=== PATIENT | male | born 1945 | race Caucasian/White ===

== ENCOUNTER 2016-10-14 15:52 | Emergency (ER) | payer MEDICARE, OTHER ==
[~2016-10-14 15:52] MED LIST: FLONASE NAS; LISINOPRIL40 MG PO; LOP50 PO; NASAREL29 MCG NAS; NORV5 PO; PCET PO; PLEND5 PO; PRILOSEC40 MG PO
[2016-10-14 16:52] LABS: BASOPHILS 0.2 %; BASOPHILS ABSOLUTE 0.01 10/3/uL (0.0-0.16); EOSINOPHILS 2.7 %; EOSINOPHILS ABSOLUTE 0.17 10/3/uL (0.0-0.53); HEMATOCRIT 41.5 % (40.0-51.0); HEMOGLOBIN 14.7 g/dL (13.6-17.8); IMMATURE GRANULOCYTES 0.3 %; IMMATURE GRANULOCYTES ABSOLUTE 0.02 10/3/uL (0.0-0.11); LYMPHOCYTES 41.1 %; LYMPHOCYTES ABSOLUTE 2.55 10/3/uL (0.67-4.30); MEAN CORPUS HGB CONC 35.4 g/dL (32.0-36.0); MEAN CORPUSCULAR HEMOGLOB 29.8 pg (26.0-34.0); MEAN PLATELET VOLUME 9.8 fL (9.2-13.0); MONOCYTES 12.2 %; MONOCYTES ABSOLUTE 0.76 10/3/uL (0.21-1.20); NEUTROPHILS 43.5 %; PLATELET COUNT 173 10/3/uL (150-400); RBC DISTRIBUTION WIDTH 13.5 % (12.0-16.0); RED CELL COUNT 4.93 10/6/uL (4.7-6.1); WHITE BLOOD CELLS 6.2 10/3/uL (4.5-10.5)
[2016-10-14 16:53] LABS: MANUAL DIFF NO %; MEAN CORPUSCULAR VOLUME 84.2 fL (80-100)
[2016-10-14 17:09] LABS: INTERNATIONAL NORMAL RATI 1.1 UNITS (-); PARTIAL THROMBO TIME 32.1 SEC (22.5-37.2); PROTIME (NOT ORD) 14.5 SEC (12.0-14.5)
[2016-10-14 17:11] LABS: CALCIUM, SERUM 8.8 MG/DL (8.5-10.4); CHEST PAIN PROFILE TAT 0 Hrs 23 Mins; CHLORIDE, SERUM 107 MMOL/L (96-112); CO2 (CARBON DIOXIDE) 26 MMOL/L (24-34); CREATININE 0.96 MG/DL (0.70-1.30); GFR AFRICAN AMERICAN 93 ML/MIN (>=60); GFR NON AFRICAN AMERICAN 80 ML/MIN (>=60); GLUCOSE, SERUM 85 MG/DL (60-99); POTASSIUM, SERUM 3.3 MMOL/L (3.5-5.3); SODIUM, SERUM 142 MMOL/L (135-148); TROPONIN I <0.02 NG/ML (<0.05)
[2016-10-14 17:12] LABS: BUN (BLOOD UREA NITROGEN) 20 MG/DL (6-23)
== END 2016-10-14 20:47 | disposition home or self-care (01) ==
LOC: ER 15:52
PROVIDERS: Hospitalist
DX: M25.512 Pain in left shoulder (principal); R51 Headache; I10 Essential (primary) hypertension; Z79.899 Other long term (current) drug therapy
CPT/HCPCS: 71020; 80048; 83735; 84484; 85025; 85610; 85730; 93005; 99285; A9270-GY